=== PATIENT | male | born 1950 | race Hispanic/Latino ===

== ENCOUNTER → 2018-04-06 | Outpatient (CLI) | payer OTHER ==
[~2018-04-06] MED LIST: ALLO300T2 PO; GLYB-228 PO; LISI40TA4 PO; SIMV40TA59 PO
== END | disposition home or self-care (01) ==
LOC: RAH 04-05 13:42
PROVIDERS: ATTEND Internal Medicine
DX: M51.06 Intervertebral disc disorders with myelopathy, lumbar region (principal); M48.061 Spinal stenosis, lumbar region without neurogenic claudication; M25.78 Osteophyte, vertebrae
CPT/HCPCS: 72148

== ENCOUNTER → 2018-05-30 | Outpatient (CLI) | payer OTHER | END | disposition home or self-care (01) | LOC: OIH 11:20 | PROVIDERS: ATTEND Neurological Surgery | DX: S33.140A Subluxation of L4/L5 lumbar vertebra, initial encounter (principal); M25.78 Osteophyte, vertebrae; X58.XXXA Exposure to other specified factors, initial encounter; Y93.89 Activity, other specified; Y92.89 Other specified places as the place of occurrence of the external cause; Y99.8 Other external cause status | CPT/HCPCS: 72114 ==

== ENCOUNTER 2018-07-12 06:02 | Day surgery (SDC) | payer OTHER ==
[2018-07-11 12:00] VITALS: BP 199/100
[2018-07-11 12:42] VITALS: BP 160/88
[~2018-07-12] VITALS: Ht 165.1 cm; Wt 85.5 kg
[2018-07-12] VITALS (10 sets, daily range): BP systolic 160–181; BP diastolic 83–94
[~2018-07-12 06:02] MED LIST changes: +ASPI81TA40 PO; +GLIP1TAB6 PO; -GLYB-228 PO
[2018-07-12] MEDS ORDERED: IOPAMIDOL 10 ML VIAL ONE (07:05)
--- NOTE | 2018-07-12 07:28 | NUR ---
CT LUMBAR MYELOGRAM PROCEDURE PERFORMED BY DR JENSEN. PUNCTURE SITE LOW BACK AND PATIENT TOLERATED PROCEDURE WELL. CONTRAST INJECTION OF ISOVUE-200M 150MG/15ML GIVEN AT 0735 AND END OF PROCEDURE AT 0745. LOT # [id number] EXPIRES MAR 2020. SPINAL NEEDLE REMOVED AND BANDAID APPLIED WITH NO BLEEDING NOTED. PT ASSISTED TO BED. TRASPORTED TO CT @ 0745. CT IMAGING DONE. REPORT GIVEN TO SHERITA WILHELM AND PATIENT TRANSPORTED TO DAYPATIENT VIA BED @ 0800. PT STABLE, AAO X3 WITH NO C/O PAIN.
--- NOTE | 2018-07-12 08:03 | NUR ---
PATIENT RETURNED FROM RADIOLOGY IN NO DISTRESS, LOWER BACK HAS SMALL BAND AIDE SHOWS NO ACTIVE BLEEDING OR HEMATOMA. PATIENT AAOX3 . PATIENT ENCOURAGED TO DRINK PLENTY OF FLUID. AND TO REMAIN IN BEDREST FOR 4 HOUR POST PROCEDURE. CALL ZELAYA WITHIN REACH AND ENCOURAGED TO CALL FOR ASSISTANCE NEEDED. BOTH PATIENT AND FAMILY VERBALIZED UNDERSTANDING AND AGREED TO COMPLY.
--- NOTE | 2018-07-12 10:00 | NUR ---
PATIENT IN NO DISTRESS, BAND AIDE TO LOWER BACK IS CLEAN AND DRY . PATIENT STATES FEELING FINE IN NO DISTRESS. PATIENT CONTINUES TO DRINK FLUIDS.
--- NOTE | 2018-07-12 12:15 | NUR ---
PATIENT ASSISTED UP TO CHAIR, BACK BAND AIDE WAS CHANGED ORDERED. PATIENT STATES FEELING WELL IN NO DISTRESS. PATIENT ASSISTED TO CHANGE INTO HIS CLOTHES BY HIS PER PATIENTS REQUEST.
--- NOTE | 2018-07-12 12:30 | NUR ---
PATIENT DISCHARGED IN NO DISTRESS, BAND AIDE TO BACK IS CLEAN AND DRY.PATIENT STATES FEELING WELL.
== END 2018-07-12 12:30 | disposition home or self-care (01) ==
LOC: DAH 06:02
PROVIDERS: ATTEND Neurological Surgery
DX: M48.061 Spinal stenosis, lumbar region without neurogenic claudication (principal); Z79.899 Other long term (current) drug therapy; Z98.890 Other specified postprocedural states; M54.16 Radiculopathy, lumbar region
CPT/HCPCS: 62304; 72132; 82948 ×3; A4606; Q9966

== ENCOUNTER → 2019-04-10 | Outpatient (CLI) | payer OTHER ==
[~2019-04-10] MED LIST changes: -ALLO300T2 PO
== END | disposition home or self-care (01) ==
LOC: RAH 13:10
PROVIDERS: ATTEND Internal Medicine
DX: N43.3 Hydrocele, unspecified (principal); N50.89 Other specified disorders of the male genital organs
CPT/HCPCS: 76870

== ENCOUNTER → 2020-09-11 | Outpatient (CLI) | payer OTHER ==
[~2020-09-11] MED LIST changes: -LISI40TA4 PO; +LISI40TA9 PO
== END | disposition home or self-care (01) ==
LOC: RAH 11:01
PROVIDERS: ATTEND Urology
DX: N43.2 Other hydrocele (principal); N50.3 Cyst of epididymis
CPT/HCPCS: 76870

== ENCOUNTER → 2021-11-03 | Outpatient (CLI) | payer OTHER | END | disposition home or self-care (01) | LOC: RAH 09:57 | PROVIDERS: ATTEND Internal Medicine | DX: M25.111 Fistula, right shoulder (principal) | CPT/HCPCS: 73030 ==

== ENCOUNTER 2022-04-14 12:37 | Day surgery (SDC) | payer OTHER ==
[2022-04-10 10:53] LABS: APPEARANCE,URINE CLEAR (CLEAR); BILIRUBIN,URINE NEGATIVE (NEGATIVE); COLOR,URINE LIGHT-YELLOW (YELLOW); GLUCOSE, URINE (UA) >=1000 mg/dL (NEGATIVE); KETONES,URINE NEGATIVE (NEGATIVE); LEUKOCYTE ESTERASE ,URINE NEGATIVE Leu/uL (NEGATIVE); NITRATE,URINE NEGATIVE (NEGATIVE); OCCULT BLOOD,URINE NEGATIVE (NEGATIVE); PH,URINE 5.5 (5.0-8.0); PROTEIN,URINE NEGATIVE (NEGATIVE); UROBILINOGEN,URINE 0.2 mg/dL (0.2-1.0)
[2022-04-10 11:17] LABS: HEMATOCRIT 47.7 % (42-54); MEAN CORPUSCULAR HEMOGLOBIN 29.4 pg (27.0-33.0); MEAN CORPUSCULAR HGB CONC 32.7 g/dL (32.0-36.0); RED BLOOD CELL COUNT(AUTO) 5.3 MIL/uL (4.50-6.20); RED CELL DISTRIBUTION WIDTH 14.5 % (11.0-15.5); WHITE BLOOD COUNT (AUTO) 8.9 K/uL (4.8-10.8)
[2022-04-10 11:29] LABS: RBC,URINE 0-1 /HPF (0-1); SQUAMOUS EPITHELIAL CELL,UR Rare /HPF (0-2); WBC,URINE None Seen /HPF (0-1)
[2022-04-10 11:32] LABS: CREATININE 0.7 mg/dL (0.5-1.5); INR 0.93 (0.85-1.15); POTASSIUM 4.4 mmol/L (3.5-5.1); PROTHROMBIN TIME 9.9 SEC (9.6-11.6)
[2022-04-10 11:34] LABS: PARTIAL THROMBOPLASTIN TIME 29.2 SEC (26.3-35.5)
[2022-04-10 11:53] LABS: BACTERIA,URINE Rare /HPF (None Seen)
[2022-04-10 12:30] VITALS: BP 175/90
[2022-04-14] VITALS (16 sets, daily range): BP systolic 123–157; BP diastolic 59–86
[~2022-04-14] VITALS: Ht 165.1 cm; Wt 74.2 kg
[~2022-04-14 12:37] MED LIST changes: -ASPI81TA40 PO; +BUPIVACAINE/EPI/PF 0.5% 30ML VIAL IJ ONE; +GABA400C PO; +IBUP-2784 PO; +LACTATED RINGERS 1000ML 1,000 ML IV SCH; +MELO-106 PO; +ZOSYN 3.375GM+NS 50ML 50 ML IV PRN
[2022-04-14] MEDS ORDERED: 0.9%NACL 1000ML 1,000 ML IV ONE (12:43)
[2022-04-14] MEDS ORDERED: FAMOTIDINE 20MG VIAL IV ONE (13:11)
[2022-04-14] MEDS ORDERED: PROPOFOL 10 MG/ML 20ML VIAL IV ONE (13:17)
[2022-04-14] MEDS ORDERED: LIDOCAINE PF 100MG/5ML (2%) SYRINGE 5ML ONE (13:17)
[2022-04-14] MEDS ORDERED: FENTANYL CITRATE PF 50 MCG/1 ML 5ML AMP IV ONE (13:17)
[2022-04-14] MEDS ORDERED: ONDANSETRON 4MG INJ ONE (13:20)
[2022-04-14] MEDS ORDERED: GLYB-173 PO (13:30)
[2022-04-14] MEDS ORDERED: FENTANYL CITRATE PF 50 MCG/1 ML 2ML VIAL ONE (15:32)
[2022-04-14] MEDS ORDERED: ACETAMINOPHEN WITH CODEINE 1 TAB TAB ONE (16:16)
== END 2022-04-14 16:55 | disposition home or self-care (01) ==
LOC: DAH 12:37
PROVIDERS: ATTEND Urology
DX: N43.2 Other hydrocele (principal); Z20.822 Contact with and (suspected) exposure to COVID-19; I10 Essential (primary) hypertension; E11.69 Type 2 diabetes mellitus with other specified complication; E78.5 Hyperlipidemia, unspecified; F17.200 Nicotine dependence, unspecified, uncomplicated; Z79.899 Other long term (current) drug therapy; Z79.01 Long term (current) use of anticoagulants; Z86.73 Personal history of transient ischemic attack (TIA), and cerebral infarction without residual deficits; Z98.890 Other specified postprocedural states; Z98.1 Arthrodesis status
CPT/HCPCS: 80048; 85027; 85610; 85730; 87088; 87426; 81001; 36415; 71046; 93005; 55040; 82948; A6260; A4663; J7030 ×2; J3490 ×2; J3010 ×2; J2001; J2704; J2405; J2543; G0168; A4215; A4223; A4222; A4221

== ENCOUNTER → 2023-11-09 | Outpatient (CLI) | payer OTHER ==
[~2023-11-09] MED LIST changes: -BUPIVACAINE/EPI/PF 0.5% 30ML VIAL IJ ONE; -GLIP1TAB6 PO; +GLYB-173 PO; -LACTATED RINGERS 1000ML 1,000 ML IV SCH; -ZOSYN 3.375GM+NS 50ML 50 ML IV PRN
== END | disposition home or self-care (01) ==
LOC: RAH 10:24
PROVIDERS: ATTEND Internal Medicine
DX: R05.9 Cough, unspecified (principal); Z96.82 Presence of neurostimulator
CPT/HCPCS: 71046